=== PATIENT | male | born 1955 | race Caucasian/White ===

== ENCOUNTER → 2018-01-20 08:29 | Outpatient (CLI) | payer BC, SELFPAY ==
--- NOTE | 2018-01-20 | CI_ITS ---
Cerebrovascular Exam Indications: 780.4 Dizziness and giddiness. IMPRESSIONS 1. The bilateral vertebral arteries are patent with normal antegrade flow. 2. Study suggests less than 20% stenosis involving the right internal carotid artery and the left internal carotid artery. History: Risk factors: Hypertension. Hyperlipidemia. Carotid duplex study. Complete study and Doppler flow study including spectral analysis, color and coker scale imaging. Height: Height: 162.6cm. Height: 64in. Weight: Weight: 98.9kg. Weight: 217.5lb. Body mass index: BMI: 37.4kg/m^2. Body surface area: BSA: 2.16m^2. Location: Vascular laboratory. Patient status: Outpatient. Tables: Arterial flow: + +--------+--------+ Location V sys V ed + +--------+--------+ Right CCA - proximal 117cm/s 37.7cm/s + +--------+--------+ Right CCA - distal 80.1cm/s 25.9cm/s + +--------+--------+ Right ECA 105cm/s -------- + +--------+--------+ Right ICA - proximal 84.9cm/s 32.2cm/s + +--------+--------+ Right ICA - mid 91.1cm/s 34.6cm/s + +--------+--------+ Right ICA - distal 82.5cm/s 28.3cm/s + +--------+--------+ Right vertebral 56.6cm/s -------- + +--------+--------+ Left CCA - proximal 115cm/s 33cm/s + +--------+--------+ Left CCA - distal 75.4cm/s 29.9cm/s + +--------+--------+ Left ECA 99.9cm/s -------- + +--------+--------+ Left ICA - proximal 55.2cm/s 18.9cm/s + +--------+--------+ Left ICA - mid 93.6cm/s 44cm/s + +--------+--------+ Left ICA - distal 91.5cm/s 44cm/s + +--------+--------+ Left vertebral 44cm/s -------- + +--------+--------+ Velocity ratios: + + + + + + Right, V sys Right, V ed Left, V sys Left, V ed + + + + + + Max ICA/dist CCA 1.14 1.34 1.24 1.47 + + + + + + (Report amended ) Electronically signed by: Joe Alexander [id number]
== END ==
PROVIDERS: Family Provider Family Medicine; PCP Family Medicine; Visit Provider Family Medicine
DX: R42 Dizziness and giddiness (principal)
CPT/HCPCS: 93880

== ENCOUNTER → 2019-01-04 15:16 | Outpatient (POV) | payer BC, SELFPAY | PROVIDERS: Visit Provider Dermatology | DX: Z00.00 Encounter for general adult medical examination without abnormal findings (principal) ==

== ENCOUNTER → 2020-04-10 12:43 | Outpatient (CLI) | payer BC, SELFPAY | PROVIDERS: PCP Family Medicine; Visit Provider Family Medicine | DX: Z20.828 Contact with and (suspected) exposure to other viral communicable diseases (principal); U07.1 COVID-19 | CPT/HCPCS: U0003 ==

== ENCOUNTER 2021-09-21 09:36 | Emergency (ER) | payer BC, SELFPAY ==
[2021-09-21 09:45] VITALS: BP 141/87; PULSE 67; RESP 19; TEMP 37.1; O2SAT 98; BMI 31.3
--- NOTE | 2021-09-21 10:26 | HMH.EDUTC ---
[facility] Disposition Clinical Impression: Low back pain Qualifiers: Chronicity: unspecified Back pain laterality: unspecified Sciatica presence: without sciatica Qualified Code(s): M54.50 - Low back pain, unspecified Disposition: Home, Self-Care Condition on Discharge: Good Instructions: Low Back Pain, DI for Low Back Pain, Metaxalone Additional Instructions: *Ibuprofen keyanna 6 hours with meal as needed for pain/inflammation if you can take it *Remember you had a Toradol shot in the clinic today, which is similar to Motrin *Not additional anti-inflammatory like motrin, aleve, advil with the above amount of ibuprofen. You can still take Tylenol every 4 hours as needed if you need something else for pain *Ice 20 minutes every 2 hours for the first 48 hours after the initial injury followed by moist heat every 20 minutes 3-4 times a day to affected area *Muscle relaxer every 8 hours as needed for muscle spasms but remember, it WILL cause drowsiness You cannot take it and drive, operate machinery or care for small children. *Keep this area active, no movement leads to more stiffness, However take it easy and avoid heavy lifting pushing or pulling *Follow up with you family doctor if no improvement for further treatment Prescriptions: Metaxalone [Skelaxin 800mg Tablet] 800 mg PO TID PRN #15 tab PRN Reason: Muscle Spasm Transmission Status: Received by [id number] Referrals: Leann Robertson MD [Primary Care Provider] - As needed Time of Disposition: 10:35 Medical Decision Making - Matthew Inquiry Pt receiving controlled substance: No Matthew was queried for this patient: No Vital Signs: 09/21/21 09:45 Temperature 98.7 F Temperature Source Oral Pulse Rate [Left Brachial] 67 Respiratory Rate 19 Blood Pressure [Left Arm] 141/87 H Blood Pressure Mean [Left Arm] 105 Blood Pressure Source [Left Arm] Automatic Cuff Blood Pressure Position [Left Arm] Sitting 02 Sat by Pulse Oximetry 98 Oxygen Delivery Method Room Air Orders (Tests/Meds): ED MEDICATIONS Discontinued Medications Generic Name Dose Route Start Last Admin Trade Name Freq PRN Reason Stop Dose Admin Ketorolac Tromethamine 30 mg 09/21/21 10:26 09/21/21 10:38 Ketorolac 60mg/2ml Vial IM 09/21/21 10:27 30 mg ONCE ONE Administration Methylprednisolone Sodium Succinate 125 mg 09/21/21 10:26 09/21/21 10:37 Methylprednisolone Sod Succ 125mg Vial IM 09/21/21 10:27 125 mg ONCE ONE Administration Medical Decision Narrative: Recommended xray of lspine and patient declined states that he has had this issue for years and had several xrays in the past Medication discussed with pharmacy [facility] HPI - General Stated complaint: Lower back pain, no injury Time Seen by Provider: 09/21/21 09:55 Mode of Arrival: Ambulatory Source of Information: Patient Limitations: No Limitations Description of Symptoms (Recalled from Triage Doc. by RN): PATIENT C/O RIGHT LOWER BACK PAIN. HE STATES IT IS A RECURRING PROBLEM. NO KNOWN INJURY HEENT Symptoms (Recalled from RN notes): No Resp Symptoms (Recalled from RN notes): No Skin Symptoms (Recalled from RN notes): No MS Symptoms (Recalled from RN notes): Yes Functional Status (Recalled from RN notes): WNL - History of Present Illness Provider Complaint: Patient states that he has chronic back pain States that he has been having pain in his lower back and muscle spasms like he has when his back acts up Denies loss of control of bowel or bladder and denies radiation of pain - Related Data Home Medications Medication Instructions Recorded Confirmed Albuterol Sulfate [Proair Hfa 2 puffs IH Q4HP PRN 10/08/17 10/08/17 90mcg/puff Inh] Atorvastatin Calcium [Lipitor 40mg 40 mg PO DAILY 10/08/17 10/08/17 Tab] Cefdinir [Omnicef 300mg Capsule] 300 mg PO BID 10/08/17 10/08/17 Chlorthalidone 50 mg PO DAILY 10/08/17 10/08/17 Cyclobenzaprine HCl 10 mg PO Q8H 10/08/17 10/08/17 [Cyclobenzaprine 10mg Tab] Los
[2021-09-21 10:45] VITALS: BP 141/87; PULSE 67; RESP 19; TEMP 37.1; O2SAT 98
== END 2021-09-21 10:49 | disposition home or self-care (01) ==
PROVIDERS: Emergency Provider Nurse Practitioner; PCP Family Medicine
DX: M54.50 Low back pain, unspecified (principal); G89.29 Other chronic pain; I10 Essential (primary) hypertension; M62.838 Other muscle spasm; I25.10 Atherosclerotic heart disease of native coronary artery without angina pectoris; E78.5 Hyperlipidemia, unspecified; E11.9 Type 2 diabetes mellitus without complications; Z79.51 Long term (current) use of inhaled steroids; Z79.84 Long term (current) use of oral hypoglycemic drugs; Z79.899 Other long term (current) drug therapy; Z88.8 Allergy status to other drugs, medicaments and biological substances; Z95.5 Presence of coronary angioplasty implant and graft; Z96.643 Presence of artificial hip joint, bilateral
CPT/HCPCS: 96372; 99213; G0463

== ENCOUNTER 2023-10-30 16:05 | Emergency (ER) | payer MEDICARE, SELFPAY ==
--- OUTSIDE RECORDS SUMMARY | 2023-10-30 16:09 | XMS_ITS | Continuity of Care Document ---
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 [facility] [place], [id number], [place]. tel:[phone] Referring Provider: Dm Sotomayor, [address] [place] [address], [id number]. tel:[phone] Office/outpa tient visit,est, mod [facility], [address] [place] [address], [id number], tel:[phone] [facility] left hip pain (chief complaint) Unilateral primary osteoarthriti s, left hipPresence of artificial hip joint, bilateralSpon dylosis w/o radiculopathy of lumbar regionTrochan teric bursitis, left hip Светлана Chaidez. [address] [place], [address], [place]. tel:[phone] Referring Provider: Dm Sotomayor, [address] [place], [address]. tel:[phone] [facility], [address] [place], [address], [place] tel:[phone] [facility] Hx of hip replacement, rightHx of left hip hemiarthropla styLumbar radiculopathy Hip arthroplasty Jul- 6 No Information Family History Family Member Type Diagnosis Age At Onset No Information Payers Payer name Insurance type Covered libertarian ID Joanie jones(s) [place] - [id number] Social History Type Description Quantity Date Captured Comments Sex Male Smoking Status No Information Chief Complaint And Reason For Visit No Information Reason For Referral Reason For Referral No Information History Of Present Illness Encounter Date Complaint History Of Prese nt Illness left hip pain The problem is w orsening. Location of pain is left. There is no radiation of pain. The patient describes the pain as an ache, dull and sharp. Context: no injury. Denies relieving factors. There are no associated symptoms. Pertinent negatives include bruising, crepitus, decreased mobility, difficulty going to sleep, fever, limping, locking, nighttime awakening, popping, tenderness and weakness. left hip pain (comments) Patient comes the office today complaining of some left hip pain. He states is located over the outside of the hip. Has been ongoing for about the last 6 to 8 months. Slow onset gradual increase. No mechanism of injury. States is worse at night especially if he lies on the left hip. He is known to the office as he has a history of a left [place] resurfacing hip replacement on 01/02/2010 and a right total hip arthroplasty completed in 2006. He states he is doing fine with the right hip. No other complaints. Functional Status Date Functional Assessmen t No Information Instructions Date Instruction Additional Infor mation AP and lateral views of the spine was ordered, obtained and read in office today. the films demonstrate degenerative disc disease without evidence of any fractures.The levels of the most severity of degenerative disc disease and is at the L2-L3 and L3-L4. Also appears to be minimal retrospondylolisthesis of L2 on L3 and L3 on L4. Also anterior kissing osteophytes present. No fractures or other acute bony abnormalities appreciated. 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 They demonstrate the prosthesis to be well placed and fixated without evidence of lucencies, subsidence, osteolysis or fractures.To address the bursitis of the left hip we will begin Voltaren gel. Begin formal therapy. Continue Tylenol as needed. The importance of the figure 4 stretch at home was emphasized. We also emphasized the importance of icing. We will also order metal ion test given the fact that he has a Just[place] resurfacing replacement. We will consult with Dr. Solano upon receiving these results and contact patient with any changes to the treatment plan. Related to Presence of artificial hip joint, bilateral Assessments Type Assessment Date No Information Patient Care Teams Name Effective Dates (start - stop) Status Members No Information
[2023-10-30 16:15] VITALS: BP 130/69; PULSE 63; RESP 20; TEMP 36.4; O2SAT 97; BMI 36.2
--- NOTE | 2023-10-30 16:38 | ECG_ITS ---
APPROVED REPORT Exam: Resting ECG HR:62 bpm ECG Measurements Heart Rate 62 AXES IA 164 P 14 QRSd 92 QRS 32 QT 381 T 45 QTc 386 Conclusion SINUS RHYTHM NORMAL ECG Electronically signed by : HALIE BAILEY, 10/30/2023 22:53:39
--- NOTE | 2023-10-30 16:45 | EXP.UTC ---
Discharge Plan Disposition Patient Disposition: Home, Self-Care Condition: Good Prescriptions Prescriptions: New fluticasone propionate [Flonase Allergy Relief] 50 mcg/actuation spray,suspension 1 spray intranasal DAILY PRN (Reason: allergy symptoms) Qty: 16 0RF Rx Instructions: administer into each nostril amoxicillin-pot clavulanate 875-125 mg tablet 1 tab PO Q12H Qty: 20 0RF prednisone 20 mg tablet 20 mg PO BID Qty: 10 0RF No Action atorvastatin 40 mg tablet 40 mg PO DAILY Patient Comments: TAKE 1 TABLET BY MOUTH NIGHTLY AT BEDTIME FOR CHOLESTEROL. metformin 500 mg tablet 500 mg PO BID Patient Comments: TAKE 1 TABLET BY MOUTH TWICE DAILY WITH FOOD. 90 losartan 100 mg tablet 100 mg PO DAILY Patient Comments: TAKE 1 TABLET BY MOUTH ONCE DAILY FOR BLOOD PRESSURE. metoprolol tartrate 25 mg tablet 25 mg PO DAILY Patient Comments: TAKE 1 TABLET BY MOUTH ONCE DAILY FOR BLOOD PRESSURE. Referrals Follow up/Referrals: Leann Robertson MD [Primary Care Provider] - See instructions Activity Restrictions/Add. Instructions Additional Instructions/Restrictions: Return to clinic if chest pain, neck pain, shortness of vision, worsening dizziness, etc Take meds, hydrate well, stay off of scaffolding! Clinical Impressions Clinical Impression: Sinusitis Instructions Patient Instructions: DI for Sinusitis Discharge ED Provider: Kelsi Yoo [facility] General Stated complaint: dizzy Mode of Arrival: Ambulatory Source of Information: Patient Limitations: No Limitations Time Seen by Provider: 10/30/23 16:45 Description of Symptoms (Recalled from Triage Doc. by RN): PATIENT C/O DIZZINESS, CHEST DISCOMFORT, IRREGULAR HEARTBEAT AND WEAKNESS THAT STARTED THIS AFTERNOON HEENT Symptoms (Recalled from RN notes): No Resp Symptoms (Recalled from RN notes): No Skin Symptoms (Recalled from RN notes): No MS Symptoms (Recalled from RN notes): No Functional Status (Recalled from RN notes): WNL History of Present Illness Provider Complaint: Patient states he got dizzy earlier today. 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 Then he felt like his heart was racing. He did have a heart attack in 2008. He had a normal stress test in April. Takes Metformin for diabetes. Ears feel full and fuzzy. Neck hurts sometimes when he turns it a certain way. Has a hiatal hernia. Onset (ago): hour(s) (3) Location: chest Radiation: non-radiation Relieving factors: none Exacerbating factors: none Associated symptoms: denies other symptoms Treatments prior to arrival: none Related Data Home Medications Medication Instructions Recorded Confirmed atorvastatin 40 mg tablet 40 mg PO DAILY 10/30/23 10/30/23 losartan 100 mg tablet 100 mg PO DAILY 10/30/23 10/30/23 metformin 500 mg tablet 500 mg PO BID 10/30/23 10/30/23 metoprolol tartrate 25 mg tablet 25 mg PO DAILY 10/30/23 10/30/23 Previous Rx's Medication Instructions Recorded amoxicillin 875 mg-potassium 1 tab PO Q12H #20 tabs 10/30/23 clavulanate 125 mg tablet fluticasone propionate 50 1 spray intranasal DAILY PRN 10/30/23 mcg/actuation nasal allergy symptoms #16 grams spray,suspension (Flonase Allergy Relief) prednisone 20 mg tablet 20 mg PO BID #10 tabs 10/30/23 Allergies Allergy/AdvReac Type Severity Reaction Status Date / Time simvastatin [From ZOCOR] Allergy Mild Verified 10/08/17 17:17 terazosin Allergy Verified 10/08/17 17:18 Worker's Comp Is this a Worker's Comp case?: No [facility] Disclaimer: The information contained in this section may have been updated after the patient was seen, as this information can be updated by other users. Medical History (Updated 10/30/23 @ 16:55 by MADELINE Delatorre) Diabetes mellitus, type 2 Hyperlipidemia Hypertension History of heart attack Social History Smoking Status: Unknown if ever smoked alcohol intake: never current occupational status: other Travel in the last 8 weeks: None ROS Obtained: Yes All systems reviewed & no additional complaints except as documented Cardiovascular Cardiovascular: Reports lightheadedness, Reports palpitations and Reports rapid heart rate Endocrine Endocrine: Reports palpitations Physical Exam General General appearance: alert and in no apparent distress Head Head exam: atraumatic, normocephalic and normal inspection Eye Eye exam: Present normal appearance, PERRL and EOMI ENT ENT exam: Present normal exam, normal oropharynx, mucous membranes moist and normal external ear exam Expanded ENT Exam TM/Canal exam: Right TM: effusion Nose exam: Present sinus tenderness Neck Neck exam: Present normal inspection, full ROM and trachea midline; Absent meningismus or lymphadenopathy Chest Chest inspection: Present normal inspection and symmetric chest wall rise; Absent tenderness Respiratory Respiratory exam: Present normal lung sounds bilaterally; Absent respiratory distress Cardiovascular Cardiovascular exam: Present regular rate and normal rhythm; Absent JVD Abdominal Exam Abdominal exam: Present soft and normal bowel sounds; Absent distention, tenderness or guarding Extremities Exam Extremities exam: Present normal inspection, full ROM and normal capillary refill; Absent calf tenderness Back Exam Back exam: Present normal inspection; Absent tenderness Neurological Exam Neurological exam: Present alert and oriented X3 Psychiatric Psychiatric exam: Present normal affect and normal mood Skin Skin exam: Present warm, dry, intact and normal color Lymphatic Lymphatic Findings: no adenopathy Medical Decision Making Matthew Inquiry Pt receiving controlled substance: No Vital Signs: 10/30/23 16:15 Temperature 97.5 F L Temperature Source Oral Pulse Rate [Left Brachial] 63 Respiratory Rate 20 Blood Pressure [Left Arm] 130/69 Blood Pressure Mean [Left Arm] 89 Blood Pressure Source [Left Arm] Automatic Cuff Blood Pressure Position [Left Arm] Sitting 02 Sat by Pulse Oximetry 97 Oxygen Delivery Method Room Air ECG Data Tracing #1: NSR ECG initial impression date: 10/30/23 ECG initial impression time: 16:38 ECG normal with no acute: arrhythmias, ischemia, conduction abnormalities, chamber hypertrophy Normal Sinus Rhythm: Yes
[2023-10-30 16:56] VITALS: BP 130/69; PULSE 63; RESP 20; TEMP 36.4; O2SAT 97
== END 2023-10-30 17:00 | disposition home or self-care (01) ==
PROVIDERS: Emergency Provider Physician Assistant; PCP Family Medicine
DX: J01.90 Acute sinusitis, unspecified (principal); R42 Dizziness and giddiness; M54.2 Cervicalgia; E11.9 Type 2 diabetes mellitus without complications; I10 Essential (primary) hypertension; E78.5 Hyperlipidemia, unspecified; Z79.84 Long term (current) use of oral hypoglycemic drugs
CPT/HCPCS: 93005; 99212; 99214; G0463